=== PATIENT | male | born 1975 | race African-American/Black ===

== ENCOUNTER 2022-06-30 16:09 | Emergency (ER) | payer BC ==
[~2022-06-30] VITALS: Ht 177.8 cm; Wt 80.0 kg
[2022-07-01 02:42] LABS: BASOPHILS % 0.4 % (0.0-2.0); HEMATOCRIT. 42.6 % (42.0-52.0); HEMOGLOBIN. 14.6 g/dL (14.0-18.0); LYMPHOCYTES % 37.4 % (20.0-50.0); MEAN CORPUSCULAR HEMOGLOBIN 29.5 pg (28.0-32.0); MEAN CORPUSCULAR VOLUME 85.8 fL (80.0-94.0); MEAN PLATELET VOLUME 8.6 fl (7.4-10.4); MONOCYTES % 13.5 % (2.0-8.0); NEUTROPHILS % 47.7 % (40.0-76.0); PLATELET 166 x1000/uL (130-400); RED BLOOD CELL COUNT 4.96 mill/uL (4.7-6.1); RED CELL DISTRIBUTION WIDTH 14.9 % (11.6-14.6)
[2022-07-01 02:46] LABS: CHLORIDE 100 mEq/L (98-107)
[2022-07-01 03:02] LABS: T4 FREE 0.93 ng/dL (0.76-1.46)
[2022-07-01] MEDS ORDERED: APIXABAN 5 MG TABLET PO STA (03:02)
[2022-07-01] MEDS ORDERED: AMLODIPINE 10MG TABLET PO ONE (03:15)
[2022-07-01 06:34] VITALS: BP 105/74
== END 2022-07-01 06:36 | disposition home or self-care (01) ==
LOC: ER 16:09
DX: R07.9 Chest pain, unspecified (principal); I10 Essential (primary) hypertension; Z86.16 Personal history of COVID-19; Z86.711 Personal history of pulmonary embolism
CPT/HCPCS: 36415; 71045; 80053; 83880; 84439; 84443; 84484; 85025; 93005; 99285